=== PATIENT | male | born 1940 | race Caucasian/White ===

== ENCOUNTER 2024-05-08 18:05 | Inpatient (IN) | payer OTHER, SELFPAY ==
[2024-05-08] VITALS (9 sets, daily range): BP systolic 121–165; BP diastolic 55–100; BMI 28.7; BMI 27.5
--- NOTE | 2024-05-08 13:03 | ED.GENMED ---
History of Present Illness
General
Chief Complaint: Chest Pain
Time Seen by Provider: 05/08/24 13:02
History of Present Illness
History of Present Illness:
HPI: The patient presents with chest discomfort that started while seated at 10:15 AM today. He had a heart attack treated [place] 10 years ago but at that time had no chest pain. He had 1 stent placed. He states he last had a stress test
approximately 8 years ago. He currently has minimal if any chest discomfort. He may have had some minimal shortness of breath as well but appears to be in no distress currently. He did take nitroglycerin earlier in the day which did not help
initially.
EXAM:
GENERAL: Well appearing in no distress
HEENT: Moist oral mucosa
CARDIOVASCULAR: No murmurs, normal heart rate, regular rhythm, No chest wall tenderness
PULMONARY: No respiratory distress, breath sounds are clear and equal
ABDOMEN: Soft with no peritoneal signs, no tenderness
NEUROLOGIC: Excellent strength all extremities, no coordination deficits
PSYCHIATRIC: Appropriate mental status, normal insight and judgement
EXTREMITIES: Nontender, no edema, moves all extremities equally
SKIN: No rash, no lesions
TIME OF INITIAL ENCOUNTER: 1:10 PM
NUMBER AND COMPLEXITY OF PROBLEMS ADDRESSED AT THE ENCOUNTER
� Chronic conditions affecting care: CAD/RI, high blood pressure, hyperlipidemia, Workman's esophagus, GERD
� Acute Exacerbation and/or Progression of Chronic Illness: This is an acute problem
� Differential Diagnosis includes: ACS, anxiety, chest wall pain, pneumothorax very unlikely, exacerbation of GERD
AMOUNT AND/OR COMPLEXITY OF DATA TO BE REVIEWED AND ANALYZED
� I performed an independent evaluation of and my interpretation is:
EKG: Sinus 60, leftward axis deviation, nonspecific ST abnormality, no old to compare
CT:
X-rays: Chest x-ray unremarkable
Laboratory Studies: CBC normal, chemistries unremarkable however the blood sugar is 242, initial troponin negative, repeat troponin elevated
Other:
� Review of other/old records: No old records available for review in [facility]
� Clinical information was obtained by an independent historian: I spoke to the at bedside
� Prescriptions/Medications Considered but not given:
� Further testing considered but not performed:
RISK OF COMPLICATIONS AND/OR MORBIDITY OR MORTALITY OF PATIENT MANAGEMENT
� Social determinants of health affecting care: Lives at home
� Discussion with other providers: Dr. Garcia notified at 4:58 PM; Dr. Colmenares for admission
� Escalation of care including admission/observation vs risk of discharge considered: The patient had some chest discomfort that started approximately 3 hours ago. Initial EKG unremarkable. Minimal symptoms currently. 2:29 PM,
patient states all pain has resolved. Initial EKG unremarkable. Repeat troponin is elevated. Placed on heparin. No chest pain at rest and throughout the majority of his stay in the emergency department however when he did walk to the bathroom
and back he had a little bit of chest discomfort.
Phy Exam
Physical Exam
Physical Exam:
See HPI
Scores
Heart Score for Chest Pain Patients
STEMI patient?: No
History: Moderately Suspicious
ECG: Normal
Age: >/= 65 years
Risk Factors: >/= 3 Risk Factors or History of CAD
Troponin: >/= 3 x Normal Limit
Heart Score for Chest Pain Patients: 7
Heart Score Risk: 72.7 % MACE over next 6 weeks
Course
Orders/Labs/Results
Orders:
Orders
05/08/24 12:31
EKG [Electrocardiogram (*1)] Urgent
Reason for Study: Chest Pain
EKG- Treatment ONCE
05/08/24 13:14
Complete Blood Count/With Diff Urgent
Comprehensive Metabolic Panel Urgent
Magnesium Urgent
Troponin I Urgent
05/08/24 13:16
CR Chest - 2 Views Urgent
Comment:
Reason For Exam: pain
10/03/24 13:22
Aspirin 325 mg PO NOW STA
05/08/24 16:10
Troponin I Urgent
05/08/24 16:49
PTT Urgent
Comment: Obtain baseline before beginning heparin infusion if not already collected
Pharmacy Request to Place See Dose Instructions PO NOW STA
Discontinue all Active Warfarin orders?: Yes
Nursing to Place Non Medication Order As Directed
Physician Order: PTT 6 hours after initial start of Heparin infusion
05/08/24 17:00
Heparin [id number] Units/250 ml 25,000 units in 250 ml IV PER PROTOCOL
Weight to be used for heparin protocol in kilograms (kg):: 95.8
Protocol:: Cardiac Tx/Acute Coronary
PTT Goal Range to be used:: PTT 73 to 111 seconds
Order type:: Initial
INITIAL Infusion Dose (UNITS/KG/hr) & then follow protocol:: 12 units/kg/hr
Infusion Dose in UNITS/hr & then follow protocol (UNITS/hr):: 1,000
INFUSION RATE in mL/hr & then follow protocol (mL/hr):: 10
PTT less than or equal to 64 seconds:: Increase rate by 200 units/hr (+ 2 mL/hr)
PTT 64.1 to 72.9 seconds:: Increase rate by 100 units/hr (+ 1 mL/hr)
PTT 73 to 111 seconds:: Target Range. No change in rate.
PTT 111.1 to 130.9 seconds:: Decrease rate by 100 units/hr (- 1 mL/hr)
PTT 131 to 199.9 seconds:: HOLD for 1 hr. Then decrease rate by 200 units/hr (- 2 mL/hr)
PTT greater than or equal to 200 seconds:: HOLD for 2 hrs & Notify Provider. Then decrease by 200 units/hr (-
2 mL/hr)
Lab follow-up:: Each change, PTT q6h until 2 consecutive are therapeutic. Then PTT
daily.
Pharmacy Request to Place See Dose Instructions IV DIRECTED
Abnormal Lab Results
10/03/24 10/03/24
13:14 16:10
RBC 4.51 L 10^6/uL
(4.70-6.10)
Abs Immat Gran (auto) 0.1 H 10^3/uL
(0-0.05)
Absolute Neuts (auto) 7.6 H 10^3/uL
(1.4-6.5)
Neutrophils % 77.2 H %
(42.2-75.2)
Lymphocytes % 13.4 L %
(20.5-51.1)
Glucose 242 H mg/dl
(70-99)
Troponin I 0.192 H* D ng/ml
05/08/24 13:14
05/08/24 13:14
Vital Signs
Initial and Last Documented VS:
Initial Vital Signs
Temp Pulse Resp BP Pulse Ox
98.1 F 66 16 165/100 98
05/08/24 12:34 05/08/24 12:34 05/08/24 12:34 05/08/24 12:34 05/08/24 12:34
Last Documented Vital Signs
Temp Pulse Resp BP Pulse Ox
98.1 F 69 23 131/70 96
05/08/24 12:34 05/08/24 13:47 05/08/24 13:47 05/08/24 13:46 05/08/24 13:32
*Critical Care Note
Total Time (30-74mins, 75-104mins- exclusive of procedures): Not Applicable
ED Attending Note
-
Portions of this chart may have been created with voice recognition software.� Occasional wrong word or��sound alike� substitutions may have occurred due to the inherent limitations of voice recognition software.
Discharge Plan
Departure
Patient Disposition: Admit
Date of Disposition: 05/08/24
Time of Disposition: 16:58
Presentation/result/management discussed w/ accepting MD/DO: Hospitalist
Discharge Problem:
Acute coronary syndrome with high troponin
Prescriptions:
No Action
amlodipine 5 mg tablet
5 mg PO DAILY
simvastatin 20 mg tablet
20 mg PO HS
omeprazole 20 mg capsule,delayed release(DR/EC)
20 mg PO DAILY
irbesartan 150 mg tablet
150 mg PO DAILY
atenolol 50 mg tablet
50 mg PO DAILY
Theragen Tablet
1 tab PO DAILY
aspirin 81 mg Tablet,Delayed Release (Dr/Ec)
81 mg PO DAILY
nitroglycerin [Nitrostat] 0.4 mg Tablet, Sublingual
0.4 mg SUBLINGUAL [id number] PRN (Reason: chest pain)
Referrals:
Zay Cuevas DO [Family Provider] -
Interventions
Interventions:
*Risk Screen - Suicide Last Done: 05/08/24 12:34
*General Assessment Last Done: 05/08/24 13:17
*Neglect/Abuse Screening Last Done: 05/08/24 12:34
ED- Fall Risk Assessment Last Done: 05/08/24 13:17
*ED COVID-19 Vaccine History Last Done: 05/08/24 13:17
ED- Cardiac Assessment Last Done: 05/08/24 13:17
Discharge Date and Time
Print Language: BURMESE
[2024-05-08 13:28] LABS: % Basophils 0.3 % (0-2); % Eosinophils 2.3 % (0-6); % Immature Granulocytes 0.5 % (0-0.5); % Lymphocytes 13.4 % (20.5-51.1); % Monocytes 6.3 % (1.7-9.3); % Neutrophils 77.2 % (42.2-75.2); Absolute Eosinophils 0.2 10^3/uL (0-0.7); Absolute Immature Granulocytes 0.1 10^3/uL (0-0.05); Absolute Lymphocytes 1.3 10^3/uL (1.2-3.4); Absolute Monocytes 0.6 10^3/uL (0.1-0.6); Absolute Neutrophils 7.6 10^3/uL (1.4-6.5); Hematocrit 39.8 % (39.0-52.0); Hemoglobin 13.8 g/dL (13.0-18.0); Mean Corp Hgb Conc. 34.7 g/dL (33.0-37.0); Mean Corpuscular Hgb 30.6 pg (27.0-31.0); Mean Corpuscular Volume 88.2 fL (80.0-94.0); Mean Platelet Volume 10.3 fL (7.4-10.4); Nucleated Red Blood Cells % 0 % (-); Platelet Count 160 10^3/uL (130-400); Red Blood Cell Count 4.51 10^6/uL (4.70-6.10); Red Cell Dist. Width 13.2 % (11.5-14.5); White Blood Cell Count 9.8 10^3/uL (4.8-10.8)
[2024-05-08] MEDS: ASPIRIN 325 MG PO (13:31)
[2024-05-08 13:43] LABS: ALT (SGPT) 33 U/L (0-50); AST (SGOT) 31 U/L (17-59); Albumin 4.2 g/dl (3.5-5.0); Alkaline Phosphatase 87 U/L (38-126); Blood Urea Nitrogen 20 mg/dl (9-20); Calcium 9.7 mg/dl (8.4-10.2); Carbon Dioxide 28 mmol/L (22-30); Chloride 102 mmol/L (98-107); Estimated Creatinine Clearance 55 ml/min; Glucose 242 mg/dl (70-99); Potassium 4.6 mmol/L (3.5-5.1); Sodium 141 mmol/L (135-145); Total Bilirubin 0.9 mg/dl (0.2-1.3); eGFR > 60.00
[2024-05-08 13:54] LABS: Troponin I < 0.012 ng/ml
[2024-05-08 16:48] LABS: Troponin I 0.192 ng/ml
--- NOTE | 2024-05-08 17:33 | CON.CAR ---
Addendum entered and electronically signed by Sandro Garcia MD 05/08/24 18:06:
83 yo male with PMH of CAD, prior GA and stenting 2009, HTN, hyperlipidemia. Presented to ED with chest pressure. Happened around 10am. Now resolved. Exam with RRR, no murmurs, no edema. TnI 0.192. Tele: SR/SB. EKG: NSR, no acute ischemic
changes.
Chest pressure: presentation consistent with NSTEMI.
-ASA 324mg, heparin drip, beta sal, statin
-cath and echo in AM
Original Note:
Consultation
Consultation Request
Date/Time Consultation Requested: 05/08/241700
Date/Time Consultation Performed: 05/08/241714
Requesting Provider: Dr. Chilel
Performing Provider: Jazmín ROJAS for Dr. Garcia
Reason for Consultation: NSTEMI
Medical History
-
Chief Complaint: chest discomfort
History of Present Illness:
83 y/o male with hx GA and stenting 2009 ([place]), PAF on with watchman in place, hypertension, dyslipidemia, and GERD who is here with midsternal chest pressure this AM around 1015 with associated diaphoresis. It lasted about 1.5-2 hours. He is
CP free at the time of my assessment, but he did have some mild discomfort when he went to urinate. He is calm and comfortable at the time of my assessment. He is here with his . He recently saw a tabber for hand and feet swelling, which
resolved with steroid course. No diagnosis yet.
Past Medical History
Past Medical History: Arrhythmias, CAD, GERD, HTN and Hypercholesterolemia
Social History
Tobacco: Non-Smoker
Alcohol: None
Personal:
Living: With Family
Family History
Family History: CAD (dad 59 with his 4th GA)
Allergies / Home Medications
Allergy/AdvReac Type Severity Reaction Status Date / Time
fexofenadine [From Sadie-D] Allergy Unknown Verified 05/08/24 12:41
pseudoephedrine Allergy Unknown Verified 05/08/24 12:41
[From Sadie-D]
�Medication �Instructions �Recorded �Confirmed �Type
amlodipine 5 mg tablet 5 mg PO DAILY 05/08/24 05/08/24 History
aspirin 81 mg tablet,delayed 81 mg PO DAILY 05/08/24 05/08/24 History
release
atenolol 50 mg tablet 50 mg PO DAILY 05/08/24 05/08/24 History
irbesartan 150 mg tablet 150 mg PO DAILY 05/08/24 05/08/24 History
nitroglycerin 0.4 mg sublingual 0.4 mg sublingual [id number] PRN 05/08/24 05/08/24 History
tablet (Nitrostat) chest pain
omeprazole 20 mg capsule,delayed 20 mg PO DAILY 05/08/24 05/08/24 History
release
simvastatin 20 mg tablet 20 mg PO HS 05/08/24 05/08/24 History
therapeutic multivitamin 1 tab PO DAILY 05/08/24 05/08/24 History
Review of Systems
-
History Source: Patient
All other systems: Negative unless noted
Cardiac: Chest Pain and Diaphoresis
Physical Exam
Vital Signs
Temp Pulse Resp BP Pulse Ox
98.1 F 69 23 131/70 96
05/08/24 12:34 05/08/24 13:47 05/08/24 13:47 05/08/24 13:46 05/08/24 13:32
Lab Results
05/08/24 13:14
05/08/24 13:14
Troponin I 0.192 ng/ml H* D 05/08/24 16:10
Physical Exam
General: Well Developed, Well Nourished and No Apparent Distress
HEENT: Normocephalic and Anicteric
Respiratory: Clear
Cardiac: Regular Rhythm
Impression / Plan
-
NSTEMI:
-this diagnosis is threat to life
-full dose ASA given. Continue 81 mg daily.
-IV heparin started. Continue IV heparin, which requires intensive monitoring.
-Bedrest
-echo tomorrow
-cath tomorrow- we discussed the procedure
-high-intensity statin
-continue BB
-nitrates if needed for CP- currently CP free
-trend trops, ekgs
CAD with hx stenting:
-continue ASA, statin, BB
-eval as above
PAF:
-stable in SR- continue atenolol
-watchman in place
HTN:
-continue meds and monitor
HLD:
-check lipids
-adjust to high intensity statin
Data Reviewed
-
EKG: Tracing Personally Visualized and interpreted (NSR)
Radiology: Report Reviewed by me (no acute disease of chest)
Medical Tests (Nuc Med, Echo etc): Other (echo ordered)
Labs: Labs Reviewed by me
[2024-05-08] MEDS: HEPARIN 25000 UNITS/250 ML IV (17:38)
[2024-05-08 17:40] LABS: APTT 25.9 Sec (23.4-35.0)
--- NOTE | 2024-05-08 17:40 | HPS.HSE ---
Family Physician
-
Family Physician: Zay Cuevas
Chief Complaint
-
chest pain
History of Present Illness
83-year-old male past medical history of CAD with stent 14 years ago treated [facility], afib s/p Watchmen, hypertension, hyperlipidemia, GERD, presenting with chest discomfort which started this morning. Pain described as pressure
associated with sweating without shortness of breath. He took nitroglycerin without any improvement. He only had improvement after coming to the hospital.
He denies smoking or alcohol use.
His father of heart attack.
Medical History
Past Medical History
Past Medical History: Reports Other (CAD with stent 14 years ago treated [facility], hypertension, hyperlipidemia, GERD)
Past Surgical History: Reports Other (Tonsillectomy, appendectomy, right knee meniscus repair, cervical fusion, right rotator cuff surgery, left shoulder repair, hemicolectomy, kidney stone stent, lithotripsy of kidney stone, laminectomy, spinal
fusion of cervical region, bilateral knee replacement, lumbar laminectomy, watchman placemen)
Social History
Tobacco: Non-smoker
Alcohol: None
Drug: None
Family History
Family History: Other (father with heart disease )
Allergies / Home Medications
Allergies reflects when Allergies were last updated in [employer].
Home Medications with original date entered in [employer]
Allergy/Medication List:
Allergies
Allergy/AdvReac Type Severity Reaction Status Date / Time
fexofenadine [From Sadie-D] Allergy Unknown Verified 05/08/24 12:41
pseudoephedrine Allergy Unknown Verified 05/08/24 12:41
[From Sadie-D]
Home Medications
amlodipine 5 mg tablet 5 mg PO DAILY 05/08/24
aspirin 81 mg tablet,delayed release 81 mg PO DAILY 05/08/24
atenolol 50 mg tablet 50 mg PO DAILY 05/08/24
irbesartan 150 mg tablet 150 mg PO DAILY 05/08/24
nitroglycerin 0.4 mg sublingual tablet (Nitrostat) 0.4 mg sublingual [id number] PRN chest pain 05/08/24
omeprazole 20 mg capsule,delayed release 20 mg PO DAILY 05/08/24
simvastatin 20 mg tablet 20 mg PO HS 05/08/24
therapeutic multivitamin 1 tab PO DAILY 05/08/24
Review of Systems
-
History Source: Patient
A 12 point ROS was completed and negative except as noted: Yes
Constitutional: Reports No Symptoms
EENT: Reports No Symptoms
Respiratory: Reports No Symptoms
Cardiac: Reports See HPI
Abdomen/GI: Reports No Symptoms
: Reports No Symptoms
Musculoskeletal: Reports No Symptoms
Skin: Reports No Symptoms
Neurological: Reports No Symptoms
Endocrine: Reports No Symptoms
Hematologic/Lymphatic: Reports No Symptoms
Psych: Reports No Symptoms
Physical Exam
Vital Signs
Vital Signs
Temp Pulse Resp BP Pulse Ox
98.1 F 69 23 131/70 96
05/08/24 12:34 05/08/24 13:47 05/08/24 13:47 05/08/24 13:46 05/08/24 13:32
Physical Exam
General: Well Developed, Well Nourished and No Apparent Distress
HEENT: NormoCephalic, Moist mucous membranes and Atraumatic
Respiratory: Clear
Cardiac: S1/S2 and Regular Rhythm; No Murmur or Rub
GI: Soft, Non Tender, Non Distended and Normal Bowel Sounds; No Organomegaly
Rectal: Deferred by Provider
Musculoskeletal: No Clubbing, No Cyanosis and No Edema
Skin: No Rash
Neuro: Nonfocal/grossly intact
Laboratory Results
-
05/08/24 13:14
05/08/24 13:14
Laboratory Results
Total Bilirubin 0.9 mg/dl (0.2-1.3) 05/08/24 13:14
AST 31 U/L (17-59) 05/08/24 13:14
ALT 33 U/L (0-50) 05/08/24 13:14
Alkaline Phosphatase 87 U/L (38-126) 05/08/24 13:14
Troponin I 0.192 ng/ml H* D 05/08/24 16:10
Data Reviewed
-
Lab Data: Labs Reviewed by me
Old Records: Reviewed
Impression/Plan
-
IMPRESSION:
PLAN:
# NSTEMI
# History of CAD with stent 14 years ago
-Currently no chest pain
-EKG unremarkable
-Troponin initially negative increased to 0.192
-Aspirin 325 mg given, continue 81 mg daily
-Heparin drip
-N.p.o. past midnight for catheterization tomorrow
-As needed nitroglycerin
-Check A1c and lipid panel
-Check echo
#Hx of Afib s/p cardioversion/ Watchmen
-not on anticoagulation for years
Essential hypertension
-Continue amlodipine
-Continue atenolol
-Continue irbesartan
Hyperlipidemia
-Continue simvastatin
GERD
-Continue omeprazole
Full code
DVT prophylaxis�heparin drip
Regular diet
--- NOTE | 2024-05-08 19:30 | PTCARENOTE ---
Pt transferred from ED. Pt ambulated into room with assistance. Pt AAOX3, able to make needs known, VSS. Heparin gtt running. Pt oriented to unit, call whipple within reach. Will continue with current plan.
[2024-05-08] MEDS: LIPITOR 10 MG PO (21:17)
[2024-05-08 23:37] LABS: APTT 44.9 Sec (23.4-35.0)
[2024-05-09] VITALS (15 sets, daily range): BP systolic 100–152; BP diastolic 58–104; BMI 27.5
[2024-05-09 06:28] LABS: % Basophils 0.4 % (0-2); % Eosinophils 5.1 % (0-6); % Immature Granulocytes 0.5 % (0-0.5); % Lymphocytes 31.3 % (20.5-51.1); % Monocytes 8.6 % (1.7-9.3); % Neutrophils 54.1 % (42.2-75.2); Absolute Eosinophils 0.4 10^3/uL (0-0.7); Absolute Lymphocytes 2.3 10^3/uL (1.2-3.4); Absolute Monocytes 0.6 10^3/uL (0.1-0.6); Hematocrit 35.4 % (39.0-52.0); Hemoglobin 12.4 g/dL (13.0-18.0); Mean Corpuscular Hgb 30.5 pg (27.0-31.0); Mean Platelet Volume 10.5 fL (7.4-10.4); Nucleated Red Blood Cells % 0 % (-); Platelet Count 158 10^3/uL (130-400); Red Blood Cell Count 4.07 10^6/uL (4.70-6.10); Red Cell Dist. Width 13.3 % (11.5-14.5); White Blood Cell Count 7.3 10^3/uL (4.8-10.8)
[2024-05-09 06:31] LABS: APTT 65.9 Sec (23.4-35.0)
[2024-05-09 06:45] LABS: ALT (SGPT) 30 U/L (0-50); AST (SGOT) 40 U/L (17-59); Albumin 3.7 g/dl (3.5-5.0); Alkaline Phosphatase 77 U/L (38-126); Blood Urea Nitrogen 16 mg/dl (9-20); Calcium 9.3 mg/dl (8.4-10.2); Carbon Dioxide 25 mmol/L (22-30); Chloride 106 mmol/L (98-107); Estimated Creatinine Clearance 60 ml/min; Glucose 122 mg/dl (70-99); HDL Cholesterol 51 mg/dl; LDL Cholesterol, Calculated 70 mg/dl; Potassium 4.2 mmol/L (3.5-5.1); Sodium 141 mmol/L (135-145); Total Bilirubin 0.9 mg/dl (0.2-1.3); Total Cholesterol 149 mg/dl (50-199); Total Protein 6.2 g/dl (6.3-8.2); Triglyceride 144 mg/dl (10-149); Very Low Density Lipoprotein 28 mg/dl (0-30); eGFR > 60.00
[2024-05-09] MEDS: PROTONIX 40 MG PO (07:54)
[2024-05-09] MEDS: TENORMIN 50 MG PO (07:54)
[2024-05-09] MEDS: AVAPRO 150 MG PO (07:54)
[2024-05-09] MEDS: ASPIR LOW (ENTERIC COATED) 81 MG PO (07:54)
[2024-05-09] MEDS: THERAGRAN 1 TABLET PO (07:54)
[2024-05-09] MEDS: NORVASC 5 MG PO (07:54)
[2024-05-09 08:57] LABS: Glycohemoglobin (HgbA1c) 6.8 % (4.0-5.6)
--- NOTE | 2024-05-09 09:53 | W.PN.CD ---
Today's Communication / Plan
-
Echocardiogram pending.
Cardiac catheterization with ad hoc PCI today.
Uptitrate atorvastatin.
Monitor BP.
Consider metformin in 2-3 days post catheterization.
Impression / Plan
-
Impression/Plan: 83 y/o male with PAF s/p LAAO (Watchman), HTN, HLD and CAD s/p prior PCI ([facility]) admitted with NSTEMI.
#CAD/NSTEMI:
-Acute.
-Prior PCI to mLAD ([employer]tronic Resolute Integrity 2.5 x 18 MICHELE, 06/29/2010) at [facility].
-Currently chest pain free.
-Troponin trend = <0.012 --> 0.192 --> 3.980 --> 3.730 .
-Echocardiogram pending.
-Cardiac catheterization with ad hoc PCI today.
-Continue aspirin, atenolol, heparin.
-Change simvastatin to high potency statin (currently on atorvastatin 10 mg daily).
#PAF:
-Currently in NSR.
-Rate control with atenolol.
-CHADS2-Vasc = 4 (HTN, Age x2, Vascular Disease).
-S/P Watchman LAAO.
#HTN:
-Chronic, mildly elevated.
-Continue amlodipine, atenolol.
#HLD:
-Chronic.
-Total cholesterol = 149, LDL = 70, HDL = 51, Triglycerides = 144.
-Continue atorvastatin 10 mg daily. Uptitration as tolerated.
-Goal LDL < 55.
#NIDDM
-New diagnosis.
-HbA1c = 6.8%.
-Consider metformin after cardiac catheterization.
Subjective/Interval History:
HbA1c = 6.8% (diagnostic of DM).
No acute events.
No subjective complaints.
Physical Exam
Vital Signs/Labs
Vital Signs
Temp Pulse Resp BP Pulse Ox
36.9 C 67 19 126/65 94
05/09/24 08:04 05/09/24 08:04 05/09/24 08:04 05/09/24 08:04 05/09/24 08:10
05/07/24 05/08/24 05/09/24
11:59 11:59 11:59
Actual Weight 91.943 kg
05/09/24 06:10
05/09/24 06:10
APTT 65.9 Sec (23.4-35.0) H 05/09/24 06:10
Magnesium 2.0 mg/dl (1.6-2.3) 05/08/24 13:14
Triglycerides 144 mg/dl (10-149) 05/09/24 06:10
LDL Cholesterol, Calc 70 mg/dl 05/09/24 06:10
VLDL Cholesterol, Calc 28 mg/dl (0-30) 05/09/24 06:10
HDL Cholesterol 51 mg/dl 05/09/24 06:10
LAB Results
05/08/24 05/08/24 05/08/24
13:14 16:10 23:11
Troponin I < 0.012 0.192 H* D 3.980 H* D
05/09/24 05/09/24 05/09/24
01:11 01:34 06:10
Troponin I Cancelled Cancelled 3.730 H*
Physical Exam
Constitutional: No acute distress and Comfortable
EENT: Anicteric and Moist mucous membranes
Cardiovascular: Rhythm & rate is regular, Pedal edema is absent, JVD pressure is normal, S1S2 is normal and Murmur/rub/gallop absent
Respiratory: Respiratory effort normal, Lungs clear to auscul., Wheeze Absent, Crackles Absent and Rhonchi Absent
GI: Soft, Distention absent, Flat, Non tender and Normal bowel sounds
Neuro/Psych: AO x 3
Data Reviewed
-
Date of Service: May 09, 2024
Medical Decision Making: Reviewed Test Results, Independent Historian Assessment and Test Interpretation
EKG: Tracing Personally Visualized and interpreted and Report Reviewed by me
X-Ray/CT/US/MRI/NUC/PET: Image Personally Visualized and interpreted and Report Reviewed by me
Labs: Labs Reviewed by me
--- NOTE | 2024-05-09 11:49 | W.PN.HOSP.TC ---
Today's Communication/Plan
-
hep gtt
2d echo
lhc
cards
tele
a1c
lipid
dispo: planning dependent on [facility] findings
Assessment / Plan
Assessment / Plan
Physical Exam
NAD, resting comfortably in bed
Scleral anicteric
Moist mucous membranes
No JVD
CTA bilateral
Normal S1-S2 no murmurs
Soft nontender nondistended bowel sounds active
No peripheral pitting edema
Moves extremities spontaneously
AAOx3
Assessment and Plan
NSTEMI
-Pending 2d echo
-LHC per cards
-ASA 81mg qd
-Lipid profile
-A1c
-Hep gtt
- -Follow protocol
CAD s/p PCI
-Continue asa, statin bab
Afib s/p cardioversion/watchman
-Continue atenolol for now
HTN
-Contineu antihypertensives
HLD
-Continue statin, currently on simvastatin, would chnage to HI statin if intervened
Gerd
-Continue ppi
Anticipated Discharge: 24 - 48 hours
Subjective/Interval History
-
Date of Service: May 09, 2024
seen and examined
no new complaints
no acute overnight events
chest pain no longer
Objective Data
-
Labs:
Laboratory Results
05/09/24 05/09/24
06:10 12:45
WBC 7.3
Hgb 12.4 L
Hct 35.4 L
Plt Count 158
APTT 65.9 H Pending
Sodium 141
Potassium 4.2
Chloride 106
Carbon Dioxide 25
BUN 16
Creatinine 1.0
Glucose 122 H
Calcium 9.3
Total Bilirubin 0.9
AST 40
ALT 30
Alkaline Phosphatase 77
Vital Signs:
Vital Signs
Temp Pulse Resp BP Pulse Ox
98.1 F 98 18 119/87 95
05/09/24 11:08 05/09/24 11:08 05/09/24 11:08 05/09/24 11:08 05/09/24 11:08
I&O
05/08/24 05/09/24 05/10/24
06:59 06:59 06:59
Intake Total 480 / 480
Output Total 650 / 650
Balance -170 / -170
--- NOTE | 2024-05-09 12:02 | CM ---
Patient seen bedside.
Patient lives with spouse in a split level home with 6 steps to enter.
Patient ambulates with a rollator due to getting tired with ambulation.
Patient independent prior to admission.
patient drives.
patient with remote hx of VN after knee replacement.
Patient denies home care needs at this time, but aware of CM availability should needs arise.
Patient awaiting cardiac cath today.
IMM completed and added to chart.
PMD: Dr Cuevas
Pharmacy: [facility]
Plan: home no needs anticipated.
[2024-05-09 12:51] LABS: APTT 69.4 Sec (23.4-35.0)
[2024-05-09 14:33] LABS: ACT-LR - POC > 397 Seconds (116-155)
[2024-05-09] MEDS: NSS 1000 IV (15:15)
--- NOTE | 2024-05-09 15:27 | ITS.CL.ANGIO ---
Law Researcher - Angioplasty
Angioplasty
Procedure Report:
CARDIAC CATHETERIZATION REPORT
Date of Procedure: 05/09/2024
Referring: Sandro Garcia M.D., Ph.D.
INDICATION: Non-ST elevation myocardial infarction.
PROCEDURE:
1. Left heart catheterization.
2. Coronary angiography.
3. Successful PCI of the left circumflex.
4. Successful PCI of the mid LAD.
ACCESS:
6 Moldovan right radial artery.
CATHETERS:
1. 5 Moldovan JL 3.5.
2. 5 Moldovan AR-1.
3. 6 Moldovan EBU 3.5 guiding catheter.
HEMODYNAMIC DATA
Weight (kg): 91.6
AO (s/d/x, mmHg): 116/69/92
LV (s/x mmHg): 116/8
LEFT VENTRICULOGRAPHY: Not performed.
CORONARY ANGIOGRAPHY
Dominance: Right.
Left Main: Normal size, trifurcating vessel. There is no coronary artery disease.
LAD: Normal size vessel giving rise to 2 diagonals. Diagonal 1 is a fairly large vessel supplying a significant portion of the anterolateral wall. The second diagonal is a relatively small vessel. There is an 80% lesion in the mid LAD,
proximal to D2. A patent stent is observed in the distal LAD with approximately 20-30% in-stent restenosis.
Ramus: Small size, vestigial vessel.
Circumflex: Large size, nondominant vessel giving rise to 2 obtuse marginals. There is a 20% lesion in the mid circumflex after the origin of OM1. There is a discrete, 90% lesion at the bifurcation of the circumflex and the large second obtuse
marginal.
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 There are minor luminal irregularities.
INTERVENTION(S)
1. Successful PCI of the 90% distal circumflex into OM 2 lesion (Medtronic Whatley Lamar 3.0 x 15 MICHELE, postdilated with a 3.0 NC balloon) with pre-PCI angioplasty from mid circumflex into distal circumflex (Medtronic Euphora 2.0 x 12 semicompliant
balloon) with reduction in stenosis to 0%, maintaining CONSTANTINO-3 flow in both the true circumflex and OM 2 without unfavorable plaque shift.
2. Successful PCI of the 80% mid LAD lesion (Medtronic Madi Lamar 2.5 x 12 MICHELE, postdilated with a 2.5 NC balloon) with reduction in stenosis to 0%, maintaining CONSTANTINO-3 flow.
Narrative:
The decision was made to proceed with percutaneous coronary intervention. The diagnostic catheter was removed over a wire and a 6Fr EBU 3.5 guiding catheter was advanced to the aortic root and seated in the left main coronary artery. Additional
heparin was given and a Power Turn Flex wire was advanced into the distal true circumflex. A BMW wire was advanced into the large second obtuse marginal. The 90% distal circumflex lesion was predilated with a 2.0 x 12 semi-compliant balloon to 12
kwasi into the second obtuse marginal. Given the concern for potentially unfavorable plaque shift with PCI, the semicompliant balloon was withdrawn and then readvanced over the power turn flex wire into the true distal circumflex. The lesion was
dilated again to 12 kwasi. The semi-compliant balloon was removed and a Medtronic Madi Lamar 3.0 x 15 drug-eluting stent was advanced over the BMW wire and into the second obtuse marginal. Meticulous care was taken while positioning the stent,
ensuring that the proximal stent margin was in the mid circumflex with the distal aspect and the second obtuse marginal, covering the culprit lesion. The stent was deployed at 12 atmospheres. The stent balloon was removed. A 3.0 x 12 noncompliant
balloon was advanced into the stent and the stent was postdilated to 14 atmospheres. Angiography was performed in orthogonal views, confirming good stent expansion and an excellent angiographic result with CONSTANTINO-3 flow in both the distal circumflex
as well as obtuse marginal 2. There was no significant unfavorable plaque shift. The BMW wire was pulled back into the stent and then advanced through the stent struts into the distal circumflex, showing that the circumflex was accessible
percutaneously. The power turn flex wire was then pulled out from behind the stent and advanced into OM 2, confirming that this artery was also accessible.
We then turned our attention to the mid LAD. The decision was made to proceed with percutaneous coronary intervention. The BMW wire was withdrawn from the circumflex artery and advanced into the distal LAD. Initially, we attempted to wire a
diagonal that was nearby the culprit lesion for protection. On further inspection it became clear that this diagonal was tiny and did not require protection. The power turn flex wire was removed entirely. The 80% mid LAD lesion was predilated with
a 2.0 x 12 semi-compliant balloon to 12 kwasi. The semi-compliant balloon was removed and a Medtronic Whatley Lamar 2.5 x 12 drug-eluting stent was advanced. The stent was deployed at 12 atmospheres. The stent balloon was removed. A 2.5 x 8
noncompliant balloon was advanced into the stent and the stent was postdilated to 14 atmospheres in its distal margin and 16 kwasi in its proximal margin. Angiography was performed in orthogonal views, confirming good stent expansion and an excellent
angiographic result. The coronary wire was withdrawn and the guide was disengaged from the artery. The catheter was removed over a standard J-wire.
Closure Device: Vascular band.
Radiation (mGy): 1017.09
DAP (cm2.Gy): 61.9789
Fluoroscopy time (minutes): 14.4
Sedation time (minutes): 63
CONCLUSIONS
1. 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
patent stent in the distal LAD with 20-30% in-stent restenosis.
2. Status post successful PCI to the culprit, 90% distal circumflex lesion (Medtronic Madi Lamar 3.0 x 15 MICHELE, postdilated with a 3.0 NC balloon) with pre-PCI angioplasty from the mid circumflex into the distal circumflex (Medtronic Euphora 2.0
x 12 semicompliant balloon) with reduction in stenosis to 0%, maintaining CONSTANTINO-3 flow in all vessels and avoiding unfavorable plaque shift.
3. Status post successful PCI to the 80% mid LAD lesion (Medtronic Madi Lamar 2.5 x 12 MICHELE, postdilated with a 2.5 x 12 NC balloon) with reduction in stenosis to 0%, maintaining CONSTANTINO-3 flow.
RECOMMENDATIONS:
1. Expectant management after cardiac catheterization via right radial approach.
2. Limited weight bearing on the right wrist for one week.
3. Dual antiplatelet therapy with aspirin and clopidogrel for at least 12 months, followed by aspirin indefinitely. Clopidogrel has been chosen over ticagrelor due to high fall bleeding risk and concern for bleed (the impetus for his watchman).
4. Aggressive secondary prevention with high-dose, high potency statin.
5. Guideline directed medical therapy as hemodynamics will tolerate.
6. Echocardiogram ordered and pending.
7. Referral to cardiac rehab.
Copy to: Sandro Garcia M.D., Ph.D., Zay Cuevas D.O.
Rohit Avelar, , FACC, FACP
--- NOTE | 2024-05-09 15:38 | PTCARENOTE ---
Rec'd Pt A,A+Ox3, denies pain. R radial band in place clean and dry, + radial pulse. pulsox 96% on R finger. VSS
[2024-05-09 15:43] LABS: ACT-LR - POC > 397 Seconds (116-155)
--- NOTE | 2024-05-09 16:16 | CM ---
Chart reviewed. Patient is independent of ADLS, lives with his in a split level home, [address], ambulates with a rollator for long distances. Plan is for the patient to return home. CM follow
[2024-05-09] MEDS: CRESTOR 20 MG PO (17:34)
--- NOTE | 2024-05-09 22:43 | PTCARENOTE ---
Rec'd pt at change of shift awake,alert. Educated on new medication -Plavix. Sinus on telemetry. no complaints.
[2024-05-10 05:41] VITALS: BP 131/68
[2024-05-10 06:05] LABS: Hematocrit 37.4 % (39.0-52.0); Mean Corp Hgb Conc. 34.8 g/dL (33.0-37.0); Mean Corpuscular Hgb 31.1 pg (27.0-31.0); Mean Corpuscular Volume 89.5 fL (80.0-94.0); Mean Platelet Volume 9.8 fL (7.4-10.4); Platelet Count 147 10^3/uL (130-400); Red Blood Cell Count 4.18 10^6/uL (4.70-6.10); Red Cell Dist. Width 13.2 % (11.5-14.5); White Blood Cell Count 7.6 10^3/uL (4.8-10.8)
[2024-05-10 06:26] LABS: Blood Urea Nitrogen 19 mg/dl (9-20); Carbon Dioxide 23 mmol/L (22-30); Chloride 104 mmol/L (98-107); Estimated Creatinine Clearance 55 ml/min; Glucose 132 mg/dl (70-99); Potassium 4.3 mmol/L (3.5-5.1); Sodium 138 mmol/L (135-145); eGFR > 60.00
[2024-05-10 08:24] VITALS: BP 134/70
[2024-05-10] MEDS: AVAPRO 150 MG PO (08:29)
[2024-05-10] MEDS: TENORMIN 50 MG PO (08:29)
[2024-05-10] MEDS: PROTONIX 40 MG PO (08:29)
[2024-05-10] MEDS: ASPIR LOW (ENTERIC COATED) 81 MG PO (08:29)
[2024-05-10] MEDS: THERAGRAN 1 TABLET PO (08:30)
[2024-05-10] MEDS: NORVASC 5 MG PO (08:30)
[2024-05-10] MEDS: PLAVIX 75 MG PO (08:30)
--- NOTE | 2024-05-10 08:55 | W.PN.CD ---
Today's Communication / Plan
-
stable s/p PCI yesterday
med changes are addition of Plavix 75mg daily, and changing statin to crestor 20mg daily
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
please call us with additional questions
Impression / Plan
-
Impression/Plan: 83 y/o male with PAF s/p LAAO (Watchman), HTN, HLD and CAD s/p prior PCI ([facility], 2010) admitted with NSTEMI.
#CAD/NSTEMI: s/p MICHELE to mid LAD and distal Lcx into OM2 on 05/09
-Prior PCI to mLAD (Medtronic Resolute Integrity 2.5 x 18 MICHELE, 06/29/2010) at [facility].
-Currently chest pain free.
-Echocardiogram: EF 55-60%, normal wall motion, mild/moderate MR
-Cardiac catheterization with ad hoc PCI today.
-Continue aspirin, plavix, atenolol, irbesartan
-Changed simvastatin to high potency statin (crestor 20 mg daily).
#PAF:
-Currently in NSR.
-cont atenolol.
-CHADS2-Vasc = 4 (HTN, Age x2, Vascular Disease).
-S/P Watchman LAAO.
#HTN:
-Chronic, stable
-Continue amlodipine, atenolol, irebsartan
#HLD:
-Chronic.
-Total cholesterol = 149, LDL = 70, HDL = 51, Triglycerides = 144.
-changed simvastatin to crestor 20mg daily
#NIDDM
-New diagnosis.
-HbA1c = 6.8%.
-per primary team
Subjective/Interval History:
No chest pain.
Physical Exam
Vital Signs/Labs
Vital Signs
Temp Pulse Resp BP Pulse Ox
98.3 F 74 18 123/58 95
05/10/24 08:28 10/05/24 05:30 05/10/24 08:28 05/09/24 22:07 05/10/24 08:28
05/09/24 05/10/24 05/11/24
06:59 06:59 06:59
Actual Weight 91.943 kg
05/10/24 05:54
05/10/24 05:54
APTT 69.4 Sec (23.4-35.0) H 05/09/24 12:12
Magnesium 2.0 mg/dl (1.6-2.3) 05/08/24 13:14
Triglycerides 144 mg/dl (10-149) 05/09/24 06:10
LDL Cholesterol, Calc 70 mg/dl 05/09/24 06:10
VLDL Cholesterol, Calc 28 mg/dl (0-30) 05/09/24 06:10
HDL Cholesterol 51 mg/dl 05/09/24 06:10
LAB Results
05/08/24 05/08/24 05/08/24
13:14 16:10 23:11
Troponin I < 0.012 0.192 H* D 3.980 H* D
05/09/24 05/09/24 05/09/24
01:11 01:34 06:10
Troponin I Cancelled Cancelled 3.730 H*
05/09/24
12:12
Troponin I 2.370 H* D
Physical Exam
Constitutional: No acute distress and Comfortable
EENT: Moist mucous membranes
Cardiovascular: Rhythm & rate is regular, Pedal edema is absent, JVD pressure is normal and Systolic murmur absent
Respiratory: Respiratory effort normal and Lungs clear to auscul.
Neuro/Psych: AO x 3
Data Reviewed
-
Date of Service: May 10, 2024
EKG: Other (Tele: SR 70s)
Labs: Labs Reviewed by me
--- NOTE | 2024-05-10 09:40 | W.PN.HOSP.TC ---
Today's Communication/Plan
-
Discharge
Assessment / Plan
Assessment / Plan
#NSTEMI
#CAD s/p PCI
-Status post 2 MICHELE placed, 1 to LCx and 1 to the LAD on 05/09/2024
-2D echo here showed preserved EF, no significant wall motion abnormality
-Has been started on DAPT here, statin escalated to high intensity
-Risk factors appear adequately controlled otherwise
-Will discharge on beta-sal, DAPT, statin
-DAPT for 1 year unless extenuating circumstances
-Cardiac rehab, cardiology at follow-up
#AF s/p Watchman device
-Nonvalvular, elevated [id number]; status post watchman
-No longer on anticoagulation, remains on atenolol
-Heart rate appears sinus and regular as of now
#HTN
-No known history of hypertensive systemic diseases
-Continue antihypertensives with amlodipine and atenolol
-Blood pressure currently
#HLD
-ASCVD history as above
-Moderate intensity statin has been escalated to Crestor
#GERD
-No known history of Workman's esophagus or erosive disease
-Was previously taking omeprazole, can have interactions with Plavix levels
-Will transition from omeprazole to pantoprazole to limit drug interaction
Anticipated Discharge: Today
Subjective/Interval History
-
Date of Service: May 10, 2024
Seen and examined at bedside. No acute events overnight. No acute events per telemetry. AFVSS this morning
Underwent successful PCI to the LCx and LAD yesterday with interventional cardiology. Feeling well this morning and has no acute complaints.
He denies chest pain, shortness of breath, palpitations, fevers or chills, GI complaints, urinary complaints, paresthesias or weakness, bleeding or bruising
Objective Data
-
Labs:
Laboratory Results
05/10/24
05:54
WBC 7.6
Hgb 13.0
Hct 37.4 L
Plt Count 147
Sodium 138
Potassium 4.3
Chloride 104
Carbon Dioxide 23
BUN 19
Creatinine 1.1
Glucose 132 H
Calcium 9.0
Vital Signs:
Vital Signs
Temp Pulse Resp BP Pulse Ox
98.3 F 74 18 123/58 95
05/10/24 08:28 05/10/24 05:30 05/10/24 08:28 05/09/24 22:07 05/10/24 08:28
I&O
05/09/24 05/10/24 05/11/24
06:59 06:59 06:59
Intake Total 480 / 480 690 / 690
Output Total 650 / 650 400 / 400
Balance -170 / -170 290 / 290
Review of Systems
-
History Source: Patient
All other systems: Reviewed and negative
Physical Exam
-
General: Well Nourished, No Apparent Distress and Comfortable
HEENT: Normocephalic, Atraumatic and Moist Mucous Membranes
Respiratory: Clear to Auscultation and Non Labored Respirations; Negative Wheezes, Rales or Rhonchi
Cardiac: Regular Rhythm and S1/S2; Negative Murmur, Rub, JVD or Gallop
GI: Soft, Nontender and Normal Bowel Sounds
Musculoskeletal: No Clubbing, No Cyanosis and No Edema
Skin: Warm and Dry; Negative Rash
Neuro: AO x 3 and Nonfocal/Grossly Intact
Psych: Calm
Data Reviewed
-
Labs: Labs Reviewed by me and Discussed with Patient
--- NOTE | 2024-05-10 09:48 | W.DCSUMMARY ---
Discharge Summary
Discharge Data
Date of Admission: 05/08/24
Date of Discharge: 05/10/24
-
Pending Results: No
Hospital Course
83-year-old male with CAD s/p PCI, AF s/p watchman, GERD, HTN, HLD that presented to the hospital with chest pain and elevated troponin concerning for ACS. ECG with ST depressions. Was started on IV heparin drip empirically for ACS.
Echocardiogram performed here showed preserved LVEF, no wall motion abnormality, no significant diastology, no significant valvular disease. He was taken coronary angiography on 05/09/2024 and drug-eluting stents were placed in the LCx and left
anterior descending artery. Was started on dual antiplatelet therapy, high intensity statin. Hemodynamically stable, no telemetry events following procedure. Stable for discharge on 05/10.
Should be continued on dual antiplatelet therapy with clopidogrel and aspirin for 1 year unless significant bleeding occurs. He was transition from omeprazole to pantoprazole to limit potential drug interactions with clopidogrel. Remains on
beta-sal with atenolol and home aspirin dose.
Should follow-up with cardiac rehab, vascular surgeon, primary care physician within 7 days of discharge from the hospital
Discharge Plan
-
Patient Disposition: Home (Routine Discharge)
Discharge Diagnosis/Procedures: NSTEMI, s/p angioplasty and stent x1 to Left Circumflex artery and x1 to Left Anterior Descending artery
Condition: Good
Diet: Low Cholesterol and No added salt
Activity: As tolerated
Driving Restrictions: Not until seen by your Dr
Bathing Restrictions: None
Blood Work: None
Others Tests: None
Other Services: Cardiac Rehab
Specialty Instructions: Weigh Daily- Call MD for wt gain/loss 3 lbs overnight/5 lbs in 1 week
Activity Restrictions/Additional Instructions:
Schedule follow-up appointment with family doctor within 7 days of discharge from hospital
Schedule follow-up appointment with vascular surgeon within 7 days of discharge from the hospital, also schedule cardiac rehab
Stand Alone Forms: DC Instructions- Cath/EP Lab
Referrals:
Zay Cuevas DO [Family Provider] -
Carlos Zepeda MD [Non-Admitting Privileges] - in two to four weeks
Additional Discharge Medication Instructions: STOP simvastatin and START rosuvastatin 20 mg nightly
STOP omeprazole and START pantoprazole
Prescriptions:
New
pantoprazole 40 mg Tablet,Delayed Release (Dr/Ec)
40 mg PO DAILY Qty: 90 3RF
clopidogrel 75 mg Tablet
75 mg PO DAILY Qty: 90 3RF
rosuvastatin 20 mg Tablet
20 mg PO QPM Qty: 90 3RF
Continued
amlodipine 5 mg tablet
5 mg PO DAILY
irbesartan 150 mg tablet
150 mg PO DAILY
atenolol 50 mg tablet
50 mg PO DAILY
therapeutic multivitamin Tablet
1 tab PO DAILY
aspirin 81 mg Tablet,Delayed Release (Dr/Ec)
81 mg PO DAILY
nitroglycerin [Nitrostat] 0.4 mg Tablet, Sublingual
0.4 mg SUBLINGUAL [id number] PRN (Reason: chest pain)
Discontinued
simvastatin 20 mg tablet
20 mg PO HS
omeprazole 20 mg capsule,delayed release(DR/EC)
20 mg PO DAILY
Discharge Orders:
Discharge Patient (As Directed); Ordered 05/10/24
Ordered By: Rohit Da Silva
Care Plan Goals
Care Plan Goals:
Problem: Readiness for enhanced knowledge related to diagnosis and treatment plan
Goal: Understand your diagnosis and treatment plan needs, including medications if applicable.
Instructions: Know your diagnosis, underlying causes and treatment plan options, including medications if applicable. Consult with your health care team to learn about your diagnosis and treatment plan, including medications if applicable.
Discharge Date and Time
Print Language: CYMRAES
[2024-05-10 11:25] VITALS: BP 122/70
--- NOTE | 2024-05-10 12:40 | PTCARENOTE ---
Pt seen by . Telemetry and IV device removed. Discharge instructions reviewed with pt and his regarding medications and their possible side effects, wound care, activity and driving guidelines, reporting cares and concerns and scheduling
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 Pt escorted out via wheelchair and discharged to home.
== END 2024-05-10 12:30 | disposition home or self-care (01) | DRG 322 ==
LOC: IVU 18:05
PROVIDERS: Internal Medicine Cardiovascular Disease; Nurse Practitioner; ADMITTING PHYSICIAN Hospitalist; ATTENDING PHYSICIAN Internal Medicine; EMERGENCY PHYSICIAN Emergency Medicine; FAMILY PHYSICIAN Family Medicine; OTHER PHYSICIAN Internal Medicine
PROC: B2151ZZ Fluoroscopy of Left Heart using Low Osmolar Contrast (ICD-10-PCS; 2024-05-09)
PROC: 4A023N7 Measurement of Cardiac Sampling and Pressure, Left Heart, Percutaneous Approach (ICD-10-PCS; 2024-05-09)
PROC: B2111ZZ Fluoroscopy of Multiple Coronary Arteries using Low Osmolar Contrast (ICD-10-PCS; 2024-05-09)
PROC: 027034Z Dilation of Coronary Artery, One Artery with Drug-eluting Intraluminal Device, Percutaneous Approach (ICD-10-PCS; 2024-05-09)
DX: I21.4 Non-ST elevation (NSTEMI) myocardial infarction (principal); Z79.82 Long term (current) use of aspirin; I10 Essential (primary) hypertension; K21.9 Gastro-esophageal reflux disease without esophagitis; I25.10 Atherosclerotic heart disease of native coronary artery without angina pectoris; I48.0 Paroxysmal atrial fibrillation; E78.00 Pure hypercholesterolemia, unspecified; E11.9 Type 2 diabetes mellitus without complications
CPT/HCPCS: 71046; 80048; 80053; 80061; 83036; 83735; 84484; 85025; 85027; 85347; 85730; 93005; 93306; 93458; 99285; C1725; C1769; C1874; C1894; C9600; Q9967